=== PATIENT | female | born 1950 | race Caucasian/White ===

== ENCOUNTER → 2017-03-20 | Outpatient (CLI) | payer OTHER | LOC: GIMAGING 12:13 | PROVIDERS: ATTEND Nurse Practitioner | DX: M25.532 Pain in left wrist (principal) | CPT/HCPCS: 73110-PO ==

== ENCOUNTER → 2017-08-25 | Outpatient (CLI) | payer OTHER | LOC: CIMAGING 14:42 | DX: Z12.31 Encounter for screening mammogram for malignant neoplasm of breast (principal) | CPT/HCPCS: G0202 ==

== ENCOUNTER → 2018-09-05 | Outpatient (CLI) | payer OTHER | LOC: CIMAGING 14:58 | DX: Z12.31 Encounter for screening mammogram for malignant neoplasm of breast (principal) ==